=== PATIENT | female | born 1945 ===

== ENCOUNTER 2020-09-11 15:05 | Outpatient (CLI) | payer OTHER | END 2020-09-11 15:32 | disposition home or self-care (01) | LOC: RAD 15:05 | PROVIDERS: ATTEND Physical Medicine & Rehabilitation | DX: M17.11 Unilateral primary osteoarthritis, right knee (principal); M17.12 Unilateral primary osteoarthritis, left knee; M54.6 Pain in thoracic spine; M54.5 Low back pain ==

== ENCOUNTER 2020-10-24 10:43 | Outpatient (CLI) | payer OTHER | END 2020-10-24 10:48 | disposition home or self-care (01) | LOC: MRI 10:43 | PROVIDERS: ATTEND Physical Medicine & Rehabilitation | DX: M54.2 Cervicalgia (principal) | CPT/HCPCS: 72141 ==